=== PATIENT | male | born 1990 | race Native Hawaiian/Other Pacific Islander ===

== ENCOUNTER 2020-02-03 11:13 | Emergency (ER) | payer OTHER ==
[~2020-02-03] VITALS: Ht 172.7 cm; Wt 117.9 kg
[2020-02-03 11:16] VITALS: BP 137/85
[2020-02-03] MEDS ORDERED: KETOROLAC TROMETH 60MG/2ML VIAL IM ONE (12:30)
== END 2020-02-03 13:49 | disposition home or self-care (01) ==
LOC: ER 11:13
DX: M23.8X1 Other internal derangements of right knee (principal)
CPT/HCPCS: 73562; 96372; 99283; J1885